=== PATIENT | female | born 1945 | race Caucasian/White ===

== ENCOUNTER 2020-06-18 20:37 | Inpatient (IN) | payer MEDICARE, OTHER, SELFPAY ==
[2020-06-18 20:52] VITALS: BP 179/87; PULSE 64; RESP 14; TEMP 36.6; O2SAT 91; BMI 25.6
[2020-06-18 20:57] LABS: Glucose Point of Care > 600 mg/dL (70-110)
--- NOTE | 2020-06-18 20:59 | XRR_ITS ---
PROCEDURE INFORMATION: Exam: XR Chest, 1 View Exam date and time: 06/18/2020 9:33 PM Age: 75 years old Clinical indication: Condition or disease; Other: Hyperglycemia TECHNIQUE: Imaging protocol: XR of the chest Views: Frontal portable upright view of the chest. COMPARISON: CR Chest 1 [place] [id number] 07/05/2016 6:05 PM FINDINGS: Lungs: Mild left basilar pulmonary subsegmental atelectasis. The lungs are otherwise peripherally clear bilaterally. The pulmonary vasculature is normal. Pleural space: No pleural effusion. No pneumothorax. Heart/Mediastinum: The heart is normal in size and contour. Mediastinum: Stable. Vasculature: Moderate aortic arch atherosclerotic calcification without ectasia. Diaphragm: The right hemidiaphragm remains moderately elevated. Bones/joints: Stable. Organs: The gallbladder is likely surgically absent, with metallic clips overlying the gallbladder fossa. XR/XR chest 1V portable [id number] IMPRESSION: 1. Mild left basilar pulmonary subsegmental atelectasis. 2. Prior cholecystectomy.
--- NOTE | 2020-06-18 20:59 | ECG_ITS ---
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 Measurements Intervals [place] Rate: 60 P: 71 VA: 158 QRS: 38 QRSD: 97 T: -32 QT: 430 QTc: 431 Interpretive Statements SINUS RHYTHM NONSPECIFIC T-WAVE ABNORMALITY No previous ECG available for comparison Electronically Signed On 06-19-2020 13:56:14 CDT by Ann Hills M.D. [id number]
--- NOTE | 2020-06-18 21:24 | W.ED.NAVMDI ---
HPI - Nausea/Vomiting/Diarrhea General: Chief complaint: Nausea/Vomiting/Diarrhea Stated complaint: high bs Time Seen by Provider: 06/18/20 20:58 History of Present Illness: HPI Narrative: This patient is a 75-year-old female who presents today with her . She came in with a high blood sugar. Apparently she had some nausea and vomiting this afternoon. They checked her blood sugar at home and it was reading high. She came in by ambulance. Her tells me that she has dementia and cannot answer any my questions. I asked him about what she takes for her diabetes and he said she takes an insulin pen. He does not know what dose. He does not know if she has been taking it. He does not help her with that at all. He also does not check her blood sugars and he does not know if she checks her is either. He noticed that she has been very thirsty for the past couple of weeks. MD elicited complaint: nausea and vomiting Onset (ago): unknown Associated abdominal pain: No Review of Systems General: Reports: ROS unobtainable due to mental status Endo: Reports: polydipsia PFSH ED PFSH: Medical History Anxiety B12 deficiency CKD (chronic kidney disease) Diabetes HTN (hypertension) Surgical History S/P appendectomy S/P carpal tunnel release S/P cataract surgery S/P hysterectomy Family History (Updated 11/12/19 @ 22:34 by Ngozi Underwood RN) Father Myocardial infarction Stroke Social History Smoking and tobacco status: never smoked Physical Exam Const: COMMON NORMALS: no acute distress, no limitations and alert GENERAL APPEARANCE: cooperative and comfortable HENMT: HEAD & SCALP: normal to inspection FACE & SINUS: normal facial exam Eye: GENERAL EYE: appearance normal, both eyes and all related structures Neck/C-Spine: COMMON NORMALS: supple, no meningeal signs and no JVD Chest: COMMONS NORMALS: normal inspection of the chest Resp: COMMON NORMALS: normal respiratory effort, No use of accessory muscles and clear to auscultation bilaterally AUSCULTATION: clear to auscultation bilaterally Cardio: COMMON NORMALS: no JVD, regular rate, regular rhythm and No murmurs present (Cardio) RATE: regular rate RHYTHM: regular rhythm GI: COMMON NORMALS: Normal to inspection, nondistended, normoactive bowel sounds present, Soft to palpation and non-tender INSPECTION: Yes normal to inspection AUSCULTATION: Yes normoactive bowel sounds PALPATION: Yes Soft to palpation Back/Pelvis: COMMON NORMALS: thoracic and lumbar spine normal to inspection Extremity: COMMON NORMALS: normal to inspection Neuro: COMMON NORMALS: moves all extremities, no focal motor deficits and no sensory deficits noted SENSORIUM/ORIENTATION: Yes alert MENINGEAL SIGNS: Yes no meningeal signs Psych: COMMON NORMALS: mental status grossly normal, cooperative and normal affect Skin: COMMON NORMALS: no rashes or lesions noted and turgor normal GENERAL SKIN EXAM: no rashes or lesions noted and turgor normal Course ED course: Blood sugar 700. There is no ketoacidosis. She does have a UTI. She was not vomiting in the ED. We will admit her for IV antibiotics for her UTI and insulin to control her blood sugar. Concerned about her status at home as her is not helping her with her insulin and this could be potentially dangerous situation. Vital Signs: Vital signs: Vital Signs Temperature 97.8 F 06/18/20 20:52 Pulse Rate 60 06/18/20 22:11 Respiratory Rate 18 06/18/20 22:11 Blood Pressure 179/87 06/18/20 20:52 Pulse Oximetry 93 06/18/20 22:11 MDM - Nausea/Vomiting/Diarrhea Lab Data: Labs: Lab Results 06/18/20 06/18/20 06/18/20 Range/Units 20:53 21:24 21:24 WBC 7.5 (4.0-10.0) 10^3/ uL RBC 4.96 (4.1-5.3) 10^6/u L Hgb 13.0 (11.5-15.3) g/dL Hct 41.2 (37.0-47.0) % MCV 83.1 (81-99) fL MCH 26.2 L (28.0-34.0) pg MCHC 31.6 (30.0-36.0) g/dL RDW 14.8 (12.1-15.1) % Plt Count 256 (130-400) 10^3/c mm MPV 14.0 H (7.4-10.4) fL Neut % (Auto) 79.8 % Lymph % (Auto) 12.4 % [place] % (Auto) 5.9 % Eos % (Auto) 0.8 % Baso % (Auto) 0.4 % Neut # (Auto) 5.99 (1.8-7.7) 10^3/u L Lymph # (Auto) 0.9 (0.8-4.8) 10^3/u L [place] # (Auto) 0.4 (0.2-0.9) 10^3/u L Eos # (Auto) 0.1 (0.0-0.8) 10^3/u L Baso # (Auto) 0.0 (0.0-0.1) 10^3/u L Nucleated RBC % (a uto) 0 % Nucleated RBCs # 0.0 /100WBC Sodium Cancelled Potassium Cancelled Chloride Cancelled Carbon Dioxide Cancelled Anion Gap Cancelled BUN Cancelled Creatinine Cancelled GFR Calculation Cancelled Glucose Cancelled POC Glucose > 600 (70-110) mg/dL Calculated Osmolal ity Cancelled Lactic Acid Calcium Cancelled Total Bilirubin Cancelled AST Cancelled ALT Cancelled Alkaline Phosphata se Cancelled Troponin T Baselin e C-Reactive Protein Cancelled Total Protein Cancelled Albumin Cancelled Globulin Cancelled Lipase Cancelled Urine Color (Yellow) Urine Appearance (CLEAR) Urine pH (5-7) Ur Specific Gravit y (1.005-1.030) Urine Protein (Negative) Urine Glucose (UA) (Normal) Urine Ketones (Negative) Urine Blood (Negative) Urine Nitrate (Negative) Urine Bilirubin (Negative) Urine Urobilinogen (Negative) mg/dL Ur Leukocyte Cande ase (Negative) Urine RBC (0-2) /hpf Urine WBC (0-5) /hpf Ur Squamous Epith Cells (0-5) /hpf Amorphous Sediment Urine Bacteria (NONE) /hpf Urine Mucus /hpf Urine Yeast /hpf Serum Ketones Cancelled 06/18/20 06/18/20 06/18/20 Range/Units 21:24 21:24 21:30 WBC (4.0-10.0) 10^3/ uL RBC (4.1-5.3) 10^6/u L Hgb (11.5-15.3) g/dL Hct (37.0-47.0) % MCV (81-99) fL MCH (28.0-34.0) pg MCHC (30.0-36.0) g/dL RDW (12.1-15.1) % Plt Count (130-400) 10^3/c mm MPV (7.4-10.4) fL Neut % (Auto) % Lymph % (Auto) % [place] % (Auto) % Eos % (Auto) % Baso % (Auto) % Neut # (Auto) (1.8-7.7) 10^3/u L Lymph # (Auto) (0.8-4.8) 10^3/u L [place] # (Auto) (0.2-0.9) 10^3/u L Eos # (Auto) (0.0-0.8) 10^3/u L Baso # (Auto) (0.0-0.1) 10^3/u L Nucleated RBC % (a uto) % Nucleated RBCs # /100WBC Sodium Potassium Chloride Carbon Dioxide Anion Gap BUN Creatinine GFR Calculation Glucose POC Glucose (70-110) mg/dL Calculated Osmolal ity Lactic Acid Cancelled Calcium Total Bilirubin AST ALT Alkaline Phosphata se Troponin T Baselin e Cancelled C-Reactive Protein Total Protein Albumin Globulin Lipase Urine Color Yellow (Yellow) Urine Appearance Cloudy (CLEAR) Urine pH 5 (5-7) Ur Specific Gravit y 1.015 (1.005-1.030) Urine Protein 1+ H (Negative) Urine Glucose (UA) 4+ H (Normal) Urine Ketones 1+ H (Negative) Urine Blood Trace H (Negative) Urine Nitrate Positive H (Negative) Urine Bilirubin Neg (Negative) Urine Urobilinogen Norm (Negative) mg/dL Ur Leukocyte Cande ase Negative (Negative) Urine RBC 0-4 H (0-2) /hpf Urine WBC 55-80 H (0-5) /hpf Ur Squamous Epith Cells 0-4 H (0-5) /hpf Amorphous Sediment Not Reportable Urine Bacteria 2+ H (NONE) /hpf Urine Mucus 1+ /hpf Urine Yeast Trace /hpf Serum Ketones 06/18/20 06/18/20 06/18/20 Range/Units 22:13 22:13 22:13 WBC (4.0-10.0) 10^3/ uL RBC (4.1-5.3) 10^6/u L Hgb (11.5-15.3) g/dL Hct (37.0-47.0) % MCV (81-99) fL MCH (28.0-34.0) pg MCHC (30.0-36.0) g/dL RDW (12.1-15.1) % Plt Count (130-400) 10^3/c mm MPV (7.4-10.4) fL Neut % (Auto) % Lymph % (Auto) % [place] % (Auto) % Eos % (Auto) % Baso % (Auto) % Neut # (Auto) (1.8-7.7) 10^3/u L Lymph # (Auto) (0.8-4.8) 10^3/u L [place] # (Auto) (0.2-0.9) 10^3/u L Eos # (Auto) (0.0-0.8) 10^3/u L Baso # (Auto) (0.0-0.1) 10^3/u L Nucleated RBC % (a uto) % Nucleated RBCs # /100WBC Sodium 125 L Potassium 4.4 Chloride 88 L Carbon Dioxide 19 L Anion Gap 22.4 H BUN 27 H Creatinine 1.7 H GFR Calculation Not Reportable Glucose 701 H* POC Glucose (70-110) mg/dL Calculated Osmolal ity 299 H Lactic Acid 1.1 Calcium 9.4 Total Bilirubin 0.4 AST 37 H ALT 28 Alkaline Phosphata se 128 H Troponin T Baselin e 42 H C-Reactive Protein Total Protein 7.4 Albumin 4.0 Globulin 3.4 Lipase 17 Urine Color (Yellow) Urine Appearance (CLEAR) Urine pH (5-7) Ur Specific Gravit y (1.005-1.030) Urine Protein (Negative) Urine Glucose (UA) (Normal) Urine Ketones (Negative) Urine Blood (Negative) Urine Nitrate (Negative) Urine Bilirubin (Negative) Urine Urobilinogen (Negative) mg/dL Ur Leukocyte Cande ase (Negative) Urine RBC (0-2) /hpf Urine WBC (0-5) /hpf Ur Squamous Epith Cells (0-5) /hpf Amorphous Sediment Urine Bacteria (NONE) /hpf Urine Mucus /hpf Urine Yeast /hpf Serum Ketones Negative Discharge Plan Discharge Prescriptions: No Action albuterol sulfate 90 mcg/actuation HFA aerosol inhaler 1 puff INHALATION Q4-5H RF: 0 allopurinol 100 mg tablet 100 mg PO DAILY RF: 0 amlodipine 5 mg tablet 5 mg PO .EVERY OTHER DAY RF: 0 aspirin 325 mg tablet 325 mg PO DAILY RF: 0 atorvastatin 20 mg tablet 20 mg PO DAILY RF: 0 calcium carbonate-vit D3-min 1 tab PO DAILY RF: 0 cyanocobalamin (vitamin B-12) 1,000 mcg/mL solution 1,000 mcg IM Q7D RF: 0 duloxetine 60 mg capsule,delayed release(DR/EC) 60 mg PO DAILY RF: 0 ibuprofen 600 mg tablet 600 mg PO Q8H PRN (Reason: Pain) RF: 0 clonazepam [Klonopin] 0.5 mg tablet 0.5 mg PO DAILY RF: 0 Levemir FlexTouch U-100 Insuln 100 unit/mL (3 mL) insulin pen 100 unit SUBCUT DAILY RF: 0 levothyroxine 75 mcg capsule 75 mcg PO DAILY RF: 0 lisinopril 40 mg tablet 40 mg PO DAILY RF: 0 magnesium oxide 1 tab PO DAILY RF: 0 metformin 1,000 mg tablet extended release 24hr 1,000 mg PO BID RF: 0 metoclopramide HCl 10 mg tablet 10 mg PO QID PRN (Reason: UNKNOWN) RF: 0 Trulicity 1.5 mg/0.5 mL pen injector 1.5 mg SUBCUT Q7D RF: 0 Coding Level of Care Code ED Denial Management Representative for Chg Fwd Exam Comprehensive
[2020-06-18 21:40] LABS: Basophils % 0.4 %; Eosinophils # 0.1 10^3/uL (0.0-0.8); Eosinophils % 0.8 %; Hematocrit 41.2 % (37.0-47.0); Lymphocytes # 0.9 10^3/uL (0.8-4.8); Lymphocytes % 12.4 %; Mean Corpuscular HGB Conc 31.6 g/dL (30.0-36.0); Mean Corpuscular Hemoglobin 26.2 pg (28.0-34.0); Mean Corpuscular Volume 83.1 fL (81-99); Monocytes # 0.4 10^3/uL (0.2-0.9); Monocytes % 5.9 %; Neutrophils # 5.99 10^3/uL (1.8-7.7); Neutrophils % 79.8 %; Nucleated Red Blood Cells % 0 %; Platelet Count 256 10^3/cmm (130-400); Red Blood Count 4.96 10^6/uL (4.1-5.3); Red Cell Distribution Width 14.8 % (12.1-15.1); White Blood Count 7.5 10^3/uL (4.0-10.0)
--- NOTE | 2020-06-18 22:05 | PC.NURSE ---
report given to jovana oiler helper assumed care.
[2020-06-18 22:08] LABS: Slide Review Slide Review Perform
[2020-06-18 22:11] VITALS: PULSE 60; RESP 18; O2SAT 93
[2020-06-18 22:31] LABS: Ketone (Acetest) Serum Negative (Negative)
[2020-06-18 22:37] LABS: Add Urine Microscopic? YES; Bacteria Urine 2+ /hpf; Bilirubin Urine Neg (Negative); Blood Urine Trace (Negative); Glucose Urine UA 4+ (Normal); Ketones Urine 1+ (Negative); Leukocyte Esterase Urine Negative (Negative); Mucus Urine 1+ /hpf; Nitrate Urine Positive (Negative); Protein Urine 1+ (Negative); RBC Urine 0-4 /hpf (0-2); Specific Gravity, Urine 1.015 (1.005-1.030); Squamous Epithelial Cell Urine 0-4 /hpf (0-5); Urine Appearance Cloudy (CLEAR); Urine Color Yellow (Yellow); Urobilinogen Urine Norm (Negative); WBC Urine 55-80 /hpf (0-5); pH Urine 5 (5-7)
[2020-06-18] MEDS: sodium chloride 0.9% 1,000 ML 999 ML IV (22:37)
[2020-06-18 22:38] LABS: Add Urine Culture? Yes
[2020-06-18 22:41] LABS: Alanine Aminotransferase 28 U/L (0-33); Alkaline Phosphatase 128 IU/L (35-105); Aspartate Amino Transferase 37 U/L (0-32); Blood Urea Nitrogen 27 mg/dL (8-23); Calcium 9.4 mg/dL (8.5-10.5); Carbon Dioxide 19 mmol/L (22-29); Chloride 88 mmol/L (98-107); Globulin 3.4 g/dL (1.3-4.6); Lipase 17 U/L (13-60); Osmolality Calculated 299 mOsm/kg (285-295); Sodium 125 mmol/L (136-145); Total Bilirubin 0.4 mg/dL (0.15-1.2); Total Protein 7.4 g/dL (6.6-8.7)
[2020-06-18 22:42] LABS: Lactic Sepsis W/Reflex 1.1 mmol/L (0.5-2.2)
[2020-06-18 22:55] LABS: Anion Gap 22.4 (5-19); Potassium 4.4 mmol/L (3.5-5.1); Troponin(5th) Baseline 42 ng/L (0-10)
[2020-06-18 22:56] LABS: Glucose 701 mg/dL (65-115)
--- NOTE | 2020-06-18 22:57 | PC.NURSE ---
lab called critical glucose 701, notified dr brumfield, no orders given at this time
--- NOTE | 2020-06-18 22:59 | ECG_ITS ---
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 Measurements Intervals [place] Rate: 61 P: 80 DE: 173 QRS: 55 QRSD: 95 T: 265 QT: 433 QTc: 438 Interpretive Statements SINUS RHYTHM MODERATE T-WAVE ABNORMALITY, CONSIDER INFERIOR ISCHEMIA [-0.1+ mV T WAVE IN II/aVF] Compared to ECG 06/18/2020 21:26:50 Possible ischemia now present T-wave abnormality still present Electronically Signed On 06-19-2020 13:59:49 CDT by Ann Hills M.D. [id number]
[2020-06-18] MEDS: cefTRIAXone 1,000 MG in sodium chloride 0.9% (plus) 50 ML 100 MG IV (23:04)
[2020-06-18] MEDS: insulin regular-human 100 units/1 mL 10 UNIT IVP (23:08)
--- NOTE | 2020-06-18 23:19 | P.HP_ITS ---
Providers/Chief Complaint Primary Care Provider: Patricia Hansen APN Chief Complaint: high bs History of Present Illness Misa Gordon is a 75 year old female who carries history of senile dementia, type 2 diabetes, insulin-dependent, lives with her at home came in today for an episode of emesis, hyperglycemia. Patient is not a good historian, is at the bedside who is stating that after her meal her blood sugar was checked which was high and then she experienced 2 episodes of emesis. She has cognitive impairment and her is not assisting her with insulin regimen at this point, she is not able to tell me how many units of insulin that she takes on daily basis, however she is aware of sliding scale. She is denying abdominal pain, chest pain, shortness of breath, dysuria, urinary frequency or urgency. Today she was feeling very weak and fell backwards and hit right side on the floor. She is experiencing mild to moderate pain in the right lower back area. Diagnosis in the ER revealed blood sugar 701 which after 10 units of insulin and normal saline bolus came down to 597, does not meet criteria for DKA, abnormal UA reviewed, she was given ceftriaxone, pseudohyponatremia, During my evaluation patient was able to tell me about her children's age, her name, events from today, she seems to have mild cognitive impairment, she was complaining of right lower back pain, there is moderate swelling on right lumbar area Review of Systems Const: Reports: body aches, change in appetite, fatigue and malaise; Denies: fever(s) or chills Eyes: Denies: change in vision ENMT: Denies: throat pain Card: Denies: chest pain Resp: Denies: dyspnea GI: Reports: nausea and vomiting; Denies: diarrhea : Denies: flank pain, difficulty voiding, dysuria, urinary frequency, urinary urgency or dribbling Musc: Reports: back pain and muscle cramps; Denies: neck pain Skin/Breast: Denies: rash Neuro: Denies: headache(s) Psych: Reports: memory loss and difficulty concentrating Endo: Denies: polyuria Ari/Lymph: Denies: easy bruising All/Imm: Denies: urticaria Medications/Allergies Home Medications Medication Instructions Recorded Confirmed Last Taken Type albuterol sulfate 90 mcg/actuation 1 puff INHALATION Q4-5H gm 11/12/19 06/18/20 06/17/20 History aerosol inhaler allopurinol 100 mg tablet 100 mg PO DAILY 11/12/19 06/18/20 06/18/20 History amlodipine 5 mg tablet 5 mg PO .EVERY OTHER DAY tab 11/12/19 06/18/20 06/17/20 History aspirin 325 mg tablet 325 mg PO DAILY 11/12/19 06/18/20 06/18/20 History atorvastatin 20 mg tablet 20 mg PO DAILY 11/12/19 06/18/20 06/18/20 History calcium carbonate-vit D3-min 1 tab PO DAILY 11/12/19 06/18/20 06/18/20 History clonazepam 0.5 mg tablet 0.5 mg PO DAILY 11/12/19 06/18/20 06/18/20 History cyanocobalamin (vitamin B-12) 1,000 mcg IM Q7D ml 11/12/19 06/18/20 06/12/20 History 1,000 mcg/mL injection solution duloxetine 60 mg capsule,delayed 60 mg PO DAILY 11/12/19 06/18/20 06/18/20 History release ibuprofen 600 mg tablet 600 mg PO Q8H PRN 11/12/19 06/18/20 06/18/20 History insulin detemir U-100 100 unit/mL 100 unit SUBCUT DAILY 11/12/19 06/18/20 06/18/20 History (3 mL) subcutaneous pen levothyroxine 75 mcg capsule 75 mcg PO DAILY 11/12/19 06/18/20 06/18/20 History lisinopril 40 mg tablet 40 mg PO DAILY 11/12/19 06/18/20 06/18/20 History magnesium oxide 1 tab PO DAILY 11/12/19 06/18/20 06/18/20 History metformin 1,000 mg tablet,extended 1,000 mg PO BID 11/12/19 06/18/20 06/18/20 History release 24hr metoclopramide HCl 10 mg tablet 10 mg PO QID PRN tab 11/12/19 06/18/20 06/18/20 History dulaglutide [Trulicity] 1.5 mg SUBCUT Q7D 06/18/20 06/18/20 Unknown History Allergies Allergy/AdvReac Type Severity Reaction Status Date / Time iodine Allergy Unknown Verified 06/18/20 21:46 morphine Allergy Unknown Verified 06/18/20 21:46 PFSH Acute PFSH: Medical History (Updated 06/19/20 @ 00:36 by Carmen Moralez MD) Anxiety B12 deficiency CKD (chronic kidney disease) Diabetes HTN (hypertension) Senile dementia Surgical History S/P appendectomy S/P carpal tunnel release S/P cataract surgery S/P hysterectomy Family History Father Myocardial infarction Stroke Social History (Updated 06/19/20 @ 00:37 by Carmen Moralez MD) Smoking and tobacco status: never smoked Alcohol intake: never Substance/Drug Use: never Household members: spouse Housing: House Marital status: Vitals/I&O/Wt Last Vital Signs Temp 97.8 F 06/18/20 20:52 Pulse 60 06/18/20 22:11 Resp 18 06/18/20 22:11 BP 179/87 06/18/20 20:52 Pulse Ox 93 06/18/20 22:11 Weight last 48 hrs Weight 63.503 kg Physical Exam Narrative: EXAM NARRATIVE: Very pleasant elderly female Clinically looks dehydrated S1, S2 no tachycardia heart failure Abdomen soft nontender bowel sound present Lower extremity no edema gangrene or ulcer Lungs are clear to auscultation Neurologically no focal deficit Mild cognitive impairment EOMI, PERRLA Lower extremity without edema gangrene or ulcer Data : 06/18/20 21:24 06/18/20 22:13 Micro: Microbiology 06/18/20 21:24 Blood Culture - Preliminary Blood SPECIMEN COLLECTED A&P Assessment and plan (1) Hyperglycemia without ketosis: Status: Acute (2) Acute hypoactive delirium due to another medical condition: Status: Acute (3) UTI (urinary tract infection): Status: Acute (4) Hyponatremia: Status: Acute (5) Poorly controlled type 2 diabetes mellitus: Status: Acute Additional A&P Information Hyperglycemia without DKA Poorly controlled type 2 diabetes Active UTI I believe patient's cognitive impairment and lack of appropriate use of insulin is the cause of hypoglycemia, is also not paying attention to her hyperglycemia at home as well Patient does not know her insulin dosages however on previous records she was taking Lantus 40 units After getting 10 units of insulin and bolus her sugar came down to 600 from 700 I will keep her on normal saline, high dose sliding scale, start Lantus 20 units, check A1c level UTI No signs of sepsis, continue ceftriaxone follow-up with urine culture Acute hypoactive delirium due to UTI and hyperglycemia Also sustained a fall today She has moderate swelling of the right lumbar region which I think is hematoma, for worsening of her symptoms can get lumbar CT scan Pseudohyponatremia: Secondary to hyperglycemia, I will keep her on normal saline maintenance rate for hyperglycemia Acute kidney injury likely due to nephrotoxic agents Hold lisinopril ibuprofen Hypothyroidism: Continue levothyroxine DNR/DNI discussed with the patient and her Consistent carb diet DVT prophylaxis Heparin To prevent future complications I would recommend home health services and educating her for diabetes Attestations Medical Necessity Statement*: Anticipating discharge in less than 48 hours continued management for UTI and hyperglycemia without DKA Time Spent in Patient Care: (>than 50% of time spent in counselling and/or direct pt care on unit) . 45mins Coding Level of Care Code Acute Maintenance Technician 3Rd Shift for Chg Fwd Diagnoses Hyperglycemia without ketosis R73.9 Acute hypoactive delirium due to another medical condition F05 UTI (urinary tract infection) N39.0 Hyponatremia E87.1 Poorly controlled type 2 diabetes mellitus E11.65
[2020-06-18 23:25] LABS: C Reactive Protein 10.3 mg/L (0.0-4.9)
--- NOTE | 2020-06-18 23:40 | PC.NURSE ---
accucheck 531
[2020-06-18 23:41] LABS: Glucose Point of Care 597 mg/dL (70-110)
[2020-06-19] VITALS (10 sets, daily range): BP systolic 112–171; BP diastolic 53–92; PULSE 56–84; RESP 16–18; TEMP 36.4–37.1; O2SAT 94–98
[2020-06-19 01:27] LABS: Troponin 5 2HR 41.25 ng/L (0-10); Troponin 5 2HR Delta -0.75 ABS# (0-10)
[2020-06-19] MEDS: insulin glargine 100 units/1 mL 20 UNIT SUBCUT ×2 (01:58→09:53)
[2020-06-19] MEDS: sodium chloride 0.9% 500 ML IV (01:58)
[2020-06-19] MEDS: heparin 5,000 unit/mL INJ 1 mL 5000 UNIT SUBCUT ×3 (01:58→17:26)
[2020-06-19 02:04] LABS: Glucose Point of Care > 600 mg/dL (70-110)
[2020-06-19 02:27] LABS: Estmated Average Glucose 467; Hemoglobin A1C 17.9 % (4.0-6.0)
[2020-06-19 03:07] LABS: Glucose Point of Care 519 mg/dL (70-110)
[2020-06-19] MEDS: sodium chloride 0.9% 1,000 ML 100 ML IV ×2 (03:24→11:31)
[2020-06-19] MEDS: sodium chloride 0.9% 500 ML 999 ML IV (03:25)
[2020-06-19 05:23] LABS: Basophils % 0.5 %; Eosinophils % 0.2 %; Hematocrit 34.7 % (37.0-47.0); Hemoglobin 11.1 g/dL (11.5-15.3); Lymphocytes # 1.1 10^3/uL (0.8-4.8); Lymphocytes % 16.2 %; Mean Corpuscular Hemoglobin 26.1 pg (28.0-34.0); Mean Corpuscular Volume 81.5 fL (81-99); Mean Platelet Volume 13.6 fL (7.4-10.4); Monocytes # 0.3 10^3/uL (0.2-0.9); Monocytes % 4.5 %; Neutrophils # 5.06 10^3/uL (1.8-7.7); Neutrophils % 78.1 %; Nucleated Red Blood Cells % 0 %; Platelet Count 218 10^3/cmm (130-400); Red Blood Count 4.26 10^6/uL (4.1-5.3); Red Cell Distribution Width 14.4 % (12.1-15.1); White Blood Count 6.5 10^3/uL (4.0-10.0)
[2020-06-19 05:51] LABS: Anion Gap 18.1 (5-19); Blood Urea Nitrogen 26 mg/dL (8-23); Calcium 7.9 mg/dL (8.5-10.5); Carbon Dioxide 21 mmol/L (22-29); Chloride 96 mmol/L (98-107); Glucose 407 mg/dL (65-115); Osmolality Calculated 296 mOsm/kg (285-295); Potassium 3.1 mmol/L (3.5-5.1); Sodium 132 mmol/L (136-145)
[2020-06-19 06:05] LABS: Slide Review Slide Review Perform
[2020-06-19 06:13] LABS: Glucose Point of Care 431 mg/dL (70-110)
[2020-06-19 06:13] LABS: Glucose Point of Care 329 mg/dL (70-110)
[2020-06-19] MEDS: amlodipine 5 mg Tablet PO (08:00)
[2020-06-19] MEDS: duloxetine 60 mg Capsule PO (08:00)
[2020-06-19] MEDS: aspirin 325 mg Tablet PO (08:00)
[2020-06-19] MEDS: atorvastatin 40 mg Tablet 20 MG PO (08:00)
[2020-06-19] MEDS: levothyroxine 150 mcg Tablet 75 MCG PO (08:00)
[2020-06-19] MEDS: allopurinol 100 mg Tablet PO (08:00)
[2020-06-19 10:11] LABS: Thyroid Stimulating Hormone 52.65 uIU/mL (0.27-4.20)
[2020-06-19 10:57] LABS: Glucose Point of Care 142 mg/dL (70-110)
--- NOTE | 2020-06-19 11:55 | PC.CHAP ---
Pastoral Care Encounter/Spiritual Assessment Type of Contact [] Declined literature teacher visit [] Patient/Family/Request visit [] Outpatient visit [] Follow-up visit [] Physician referral [] Code/Alert [X] Routine visit [] Staff referral [] Actively dying [] Patient sleeping [] Family support [] [] Out of room [] Palliative care [] [] Receiving care in room [] Pre-surgical visit [] Trauma [] Long length of stay [] ICU visit [] Other: Relational/Emotional Strength [] Patient feels connected with others/family/visitors/staff [] Distress [] Loneliness/isolation [] Abandonment Spirituality of Patient [] Person of Sophia [] Attends Latter-Day of their Sophia [] Believes in Prayer [] Reads Bible or Episcopal materials [] There are Spiritual issues to be addressed Clip Baker Interventions [] Prayer [] Active listening [] Non-anxious presence [] Spiritual/emotional support [] Crisis/trauma care [] Spiritual counseling [] Bereavement support [] Provided bereavement packet [] Provided Bible/devotional materials [] Provided toy/stuffed animal, coloring book to patient or family member [] Provided Communion [] Anointing/[place] [] Salvation [] Completed spiritual assessment [] Other: Impact on Illness or Injury [] Angry [] Fearful [] Anxious [] Often cries [] Exhaustion [] Unable to work [] Unable to attend jehovah's witness [] Unable to walk/stand [] Unable to read [] Unable to drive [] Unable to eat/drink [] Unable to sleep [] Unable to be with family [] Patient intubated [] Other: Summary Time spent with patient
--- NOTE | 2020-06-19 12:07 | PM.PN ---
Subjective Subjective: Interval history: Patient awake in bed at time of exam this morning. She reported no concerns, no chest pain or shortness of breath. Only concern was that she wanted to discuss with her , Jordan, about reason for admission. Discussed with her elevated blood sugars on admission. She could not tell me the amount of insulin that she takes at home. Vitals/I&O/Wt Last Vital Signs Temp 97.5 F L 06/19/20 11:18 Pulse 63 06/19/20 11:18 Resp 16 06/19/20 11:18 BP 116/59 06/19/20 11:18 Pulse Ox 96 06/19/20 11:18 06/18/20 06/19/20 06/19/20 22:59 06:59 14:59 Intake Total 1.167 / 2090.167 1000 / 1000 Balance 2090.167 / 1.167 1000 / 1000 Weight last 48 hrs Weight 63.503 kg Physical Exam Const: COMMON NORMALS: alert GENERAL APPEARANCE: cooperative ORIENTATION/CONSCIOUSNESS: Yes awake and Yes oriented to person HENMT: COMMON NORMALS: normocephalic and atraumatic HEAD & SCALP: normocephalic and atraumatic Eye: COMMON NORMALS: Equal, round and reactive pupils present PUPIL: Yes Equal, round and reactive pupils present Neck/C-Spine: COMMON NORMALS: supple GENERAL: Yes normal visual inspection Resp: COMMON NORMALS: normal respiratory effort and clear to auscultation bilaterally EFFORT & INSPECTION: Yes able to speak in complete sentences AUSCULTATION: clear to auscultation bilaterally, no rhonchi and no wheezes Cardio: COMMON NORMALS: regular rate, regular rhythm and No murmurs present (Cardio) RATE: regular rate RHYTHM: regular rhythm GI: COMMON NORMALS: Soft to palpation and non-tender INSPECTION: No abdominal distension AUSCULTATION: Yes normoactive bowel sounds PALPATION: Yes Soft to palpation Extremity: COMMON NORMALS: no clubbing, cyanosis or edema and no calf tenderness Neuro: COMMON NORMALS: CN's II-XII intact bilaterally, moves all extremities and no focal motor deficits SENSORIUM/ORIENTATION: Yes alert and Yes oriented to person SPEECH: speech normal Psych: COMMON NORMALS: cooperative OTHER: Confused with underlying dementia that appears to be her baseline Skin: COMMON NORMALS: no rashes or lesions noted GENERAL SKIN EXAM: no rashes or lesions noted Data : 06/19/20 04:50 06/19/20 04:50 Micro: Microbiology 06/18/20 21:24 Blood Culture - Preliminary Blood SPECIMEN COLLECTED A&P Assessment and plan (1) Hyperglycemia without ketosis: Very poorly controlled diabetes mellitus, hemoglobin A1c greater than 17 We will continue with Lantus, given 20 units last night, continues to have a blood sugar over 300, will give an additional 20 units today. Continue on high-dose sliding scale insulin as needed Status: Acute (2) Acute hypoactive delirium due to another medical condition: Patient does have chronic dementia, will discuss with patient's today, believe she is at her baseline mentation at this time Patient continues to try to get out of bed and pull at IV, will place with a sitter for home precautions Status: Acute (3) UTI (urinary tract infection): Continue on IV Rocephin, urine culture ordered and pending, will de-escalate antibiotic therapy as indicated Status: Acute (4) Hyponatremia: Pseudohyponatremia secondary to hyperglycemia Status: Acute (5) Poorly controlled type 2 diabetes mellitus: Plan as above Hemoglobin A1c greater than 17. Estimated average glucose of 467. Patient is not likely compliant with her insulin therapy at home and would likely benefit from home health Status: Acute Additional A&P Information Acute kidney injury: Hold nephrotoxic agents, continue with IV fluids as this appears to be prerenal, also continue to treat infectious source. Will recheck labs tomorrow Hypothyroidism: Continue levothyroxine as listed as a home medication. Will discuss with patient's if she has been taking this as her TSH is significantly elevated at 52. DNR/DNI discussed with the patient and her Consistent carb diet DVT prophylaxis Heparin Attestations Medical Necessity Statement*: Continued hospitalization due to severe hyperglycemia in the setting of UTI and poorly controlled diabetes Coding Level of Care Code Acute Wind Turbine Performance Engineer for Chg Fwd Diagnoses Hyperglycemia without ketosis R73.9 Acute hypoactive delirium due to another medical condition F05 UTI (urinary tract infection) N39.0 Hyponatremia E87.1 Poorly controlled type 2 diabetes mellitus E11.65
[2020-06-19 12:38] LABS: T3 Free 0.4 PG/ML (2.0-4.4)
[2020-06-19 16:44] LABS: Glucose Point of Care 84 mg/dL (70-110)
--- NOTE | 2020-06-19 18:21 | PC.NURSE ---
END OF SHIFT SUMMARY pt disorganized this morning. order for 1:1 sitter was given, pt has not been as disorganized. pt has been able to rest well. new IV placed today by this nurse in R AC and is patent. pt resting in bed.
[2020-06-19 21:01] LABS: Glucose Point of Care > 600 mg/dL (70-110)
[2020-06-19 21:02] LABS: Glucose Point of Care 238 mg/dL (70-110)
[2020-06-19] MEDS: cefTRIAXone 1,000 MG in sodium chloride 0.9% (plus) 50 ML 100 MG IV (21:53)
[2020-06-20] MEDS: heparin 5,000 unit/mL INJ 1 mL 5000 UNIT SUBCUT ×3 (01:07→16:47)
[2020-06-20] MEDS: sodium chloride 0.9% 1,000 ML 100 ML IV ×2 (01:37→08:01)
[2020-06-20 03:00] VITALS: BP 164/61; PULSE 64; RESP 18; TEMP 37.2; O2SAT 97
[2020-06-20 06:02] LABS: Basophils # 0.1 10^3/uL (0.0-0.1); Basophils % 0.7 %; Eosinophils # 0.2 10^3/uL (0.0-0.8); Eosinophils % 2.2 %; Hematocrit 35.4 % (37.0-47.0); Hemoglobin 11.3 g/dL (11.5-15.3); Lymphocytes # 1.6 10^3/uL (0.8-4.8); Lymphocytes % 21.3 %; Mean Corpuscular HGB Conc 31.9 g/dL (30.0-36.0); Mean Corpuscular Hemoglobin 26.7 pg (28.0-34.0); Mean Corpuscular Volume 83.5 fL (81-99); Mean Platelet Volume 13.8 fL (7.4-10.4); Monocytes # 0.6 10^3/uL (0.2-0.9); Monocytes % 8.1 %; Nucleated Red Blood Cells % 0 %; Platelet Count 251 10^3/cmm (130-400); Red Blood Count 4.24 10^6/uL (4.1-5.3); Red Cell Distribution Width 14.9 % (12.1-15.1); White Blood Count 7.6 10^3/uL (4.0-10.0)
[2020-06-20 06:29] LABS: Anion Gap 15.6 (5-19); Blood Urea Nitrogen 20 mg/dL (8-23); Calcium 8.6 mg/dL (8.5-10.5); Carbon Dioxide 22 mmol/L (22-29); Chloride 100 mmol/L (98-107); Glucose 147 mg/dL (65-115); Osmolality Calculated 283 mOsm/kg (285-295); Potassium 3.6 mmol/L (3.5-5.1); Sodium 134 mmol/L (136-145)
[2020-06-20 07:00] VITALS: BP 134/86; PULSE 59; RESP 16; TEMP 36.4; O2SAT 91
[2020-06-20 07:39] LABS: Glucose Point of Care 145 mg/dL (70-110)
[2020-06-20] MEDS: levothyroxine 150 mcg Tablet 75 MCG PO (08:03)
[2020-06-20] MEDS: aspirin 325 mg Tablet PO (08:03)
[2020-06-20] MEDS: atorvastatin 40 mg Tablet 20 MG PO (08:03)
[2020-06-20] MEDS: allopurinol 100 mg Tablet PO (08:03)
[2020-06-20] MEDS: duloxetine 60 mg Capsule PO (08:03)
[2020-06-20] MEDS: insulin glargine 100 units/1 mL 30 UNIT SUBCUT (08:52)
[2020-06-20 09:49] LABS: Glucose Point of Care 283 mg/dL (70-110)
--- NOTE | 2020-06-20 10:16 | PC.OT ---
OT Note: Patient only briefly roused and did not interact with therapist. Will attempt again as able.
--- NOTE | 2020-06-20 10:49 | PM.PN ---
Subjective Subjective: Interval history: Sleeping in bed at time of exam this morning. Upon waking she remained somewhat drowsy. She did sit up at the side of the bed and would answer yes or no questions appropriately. Continue to have some confusion with underlying dementia. RN at bedside noted that patient had a fall overnight falling back into bed and she did hit her head on the bed rail. Vitals/I&O/Wt Last Vital Signs Temp 97.6 F 06/20/20 07:00 Pulse 59 L 06/20/20 07:00 Resp 16 06/20/20 07:00 BP 134/86 06/20/20 07:00 Pulse Ox 91 06/20/20 07:00 06/19/20 06/20/20 06/20/20 22:59 06:59 14:59 Intake Total 1120 / 2120 760 / 760 Balance 1120 / 2120 760 / 760 Weight last 48 hrs Weight 63.503 kg Physical Exam Const: COMMON NORMALS: alert GENERAL APPEARANCE: cooperative ORIENTATION/CONSCIOUSNESS: Yes awake and Yes oriented to person HENMT: COMMON NORMALS: normocephalic and atraumatic HEAD & SCALP: normocephalic and atraumatic Eye: COMMON NORMALS: Equal, round and reactive pupils present PUPIL: Yes Equal, round and reactive pupils present Neck/C-Spine: COMMON NORMALS: supple GENERAL: Yes normal visual inspection Resp: COMMON NORMALS: normal respiratory effort and clear to auscultation bilaterally EFFORT & INSPECTION: Yes able to speak in complete sentences AUSCULTATION: clear to auscultation bilaterally, no rhonchi and no wheezes Cardio: COMMON NORMALS: regular rate, regular rhythm and No murmurs present (Cardio) RATE: regular rate RHYTHM: regular rhythm GI: COMMON NORMALS: Soft to palpation and non-tender INSPECTION: No abdominal distension AUSCULTATION: Yes normoactive bowel sounds PALPATION: Yes Soft to palpation Extremity: COMMON NORMALS: no clubbing, cyanosis or edema and no calf tenderness Neuro: COMMON NORMALS: CN's II-XII intact bilaterally, moves all extremities and no focal motor deficits SENSORIUM/ORIENTATION: Yes alert and Yes oriented to person SPEECH: speech normal OTHER: sleepy this morning Psych: COMMON NORMALS: cooperative OTHER: Confused with underlying dementia that appears to be her baseline Skin: COMMON NORMALS: no rashes or lesions noted GENERAL SKIN EXAM: no rashes or lesions noted Data : 06/20/20 04:30 06/20/20 04:30 Micro: Microbiology 06/18/20 21:30 Urine Culture - Preliminary Urine,Clean Catch Gram Negative Rods 06/18/20 21:24 Blood Culture - Preliminary Blood NEGATIVE TO DATE A&P Assessment and plan (1) Hyperglycemia without ketosis: Very poorly controlled diabetes mellitus, hemoglobin A1c greater than 17 Lantus 30 units daily High dose sliding scale insulin as needed Discussed with patient's , Jordan, yesterday about the importance of her taking her blood sugars at home and being compliant with her insulin as well as following diabetic diet, he verbalized understanding and agreed with plan Status: Acute (2) Acute hypoactive delirium due to another medical condition: Continue close monitoring with neurologic checks Status: Acute (3) UTI (urinary tract infection): Continue on IV Rocephin Urine culture pending Status: Acute (4) Hyponatremia: Pseudohyponatremia secondary to hyperglycemia, improved Status: Acute (5) Poorly controlled type 2 diabetes mellitus: Plan as above Hemoglobin A1c greater than 17. Estimated average glucose of 467. Patient's reported noncompliance with any medication Status: Acute Additional A&P Information Acute kidney injury: Improving Hypothyroidism: Patient had been noncompliant with levothyroxine at home, TSH elevated at 52, however due to noncompliance will not increase dose at this time will continue on previously prescribed dose and she will need outpatient recheck in 3 to 4 weeks. DNR/DNI discussed with the patient and her Consistent carb diet DVT prophylaxis Heparin Attestations Medical Necessity Statement*: Further hospitalization due to acute encephalopathy with underlying dementia, acute kidney injury, hyperglycemia Coding Level of Care Code Acute Electric Fan Assembler for Chg Fwd Diagnoses Hyperglycemia without ketosis R73.9 Acute hypoactive delirium due to another medical condition F05 UTI (urinary tract infection) N39.0 Hyponatremia E87.1 Poorly controlled type 2 diabetes mellitus E11.65
--- NOTE | 2020-06-20 10:57 | PC.CHAP ---
Pastoral Care Encounter/Spiritual Assessment Type of Contact [] Declined corn detasseler machine operator visit [] Patient/Family/Request visit [] Outpatient visit [] Follow-up visit [] Physician referral [] Code/Alert [] Routine visit [] Staff referral [] Actively dying [] Patient sleeping [] Family support [] [] Out of room [] Palliative care [] [] Receiving care in room [] Pre-surgical visit [] Trauma [] Long length of stay [] ICU visit [x] Other: Patient intubated Relational/Emotional Strength [] Patient feels connected with others/family/visitors/staff [] Distress [] Loneliness/isolation [] Abandonment Spirituality of Patient [] Person of Sophia [] Attends Restorationist of their Sophia [] Believes in Prayer [] Reads Bible or Adventist materials [] There are Spiritual issues to be addressed Acls Specialist Interventions [] Prayer [] Active listening [] Non-anxious presence [] Spiritual/emotional support [] Crisis/trauma care [] Spiritual counseling [] Bereavement support [] Provided bereavement packet [] Provided Bible/devotional materials [] Provided toy/stuffed animal, coloring book to patient or family member [] Provided Communion [] Anointing/[place] [] Salvation [] Completed spiritual assessment [] Other: Impact on Illness or Injury [] Angry [] Fearful [] Anxious [] Often cries [] Exhaustion [] Unable to work [] Unable to attend bahai [] Unable to walk/stand [] Unable to read [] Unable to drive [] Unable to eat/drink [] Unable to sleep [] Unable to be with family [x] Patient intubated [] Other: Summary Time spent with patient 5 mins
[2020-06-20 11:00] VITALS: BP 123/74; PULSE 64; RESP 16; TEMP 36.4; O2SAT 16
[2020-06-20 11:56] LABS: Glucose Point of Care 131 mg/dL (70-110)
--- NOTE | 2020-06-20 13:27 | PC.OT ---
OT EVALUATION ORDERS RECEIVED. RED FOAM FOR UTENSILS LEFT EARLIER IN THE DAY BEFORE ORDERS RECEIVED PER REPORT OF [place] THE PATIENT WAS HAVING TROUBLE HOLDING HER UTENSILS AT BREAKFAST. CHECKED AFTER LUNCH WITH 1:1 SITTER THAT REPORTS THAT THE PATIENT ONLY ATE 2 BITES OF POTATOES AT LUNCH AND APPEARED TO DO OK WITH FOAM ON UTENSILS BUT HAS NOT STAYED ALERT ENOUGH TO KNOW IF REALLY A HELP. WILL ATTEMPT OT EVALUATION AGAIN TOMORROW.
[2020-06-20 16:00] VITALS: BP 175/89; PULSE 64; RESP 18; TEMP 36.4; O2SAT 95
[2020-06-20 17:41] LABS: Glucose Point of Care 158 mg/dL (70-110)
[2020-06-20 18:38] LABS: Glucose Point of Care 132 mg/dL (70-110)
--- NOTE | 2020-06-20 18:51 | PC.NURSE ---
END OF SHIFT SUMMARY pt drowsy this morning and afternoon. pt able to wake up during dinner time to eat as well as talk with her visitor. IV patent.
[2020-06-20 19:51] VITALS: BP 164/69; PULSE 64; RESP 17; TEMP 36.5; O2SAT 94
[2020-06-20 22:22] LABS: Glucose Point of Care 173 mg/dL (70-110)
[2020-06-20] MEDS: cefTRIAXone 1,000 MG in sodium chloride 0.9% (plus) 50 ML 100 MG IV (23:20)
[2020-06-21] VITALS (7 sets, daily range): BP systolic 116–170; BP diastolic 70–88; PULSE 59–79; RESP 16–18; TEMP 36.3–37; O2SAT 94–99
[2020-06-21] MEDS: heparin 5,000 unit/mL INJ 1 mL 5000 UNIT SUBCUT ×2 (01:59→07:50)
[2020-06-21 06:22] LABS: Glucose Point of Care 114 mg/dL (70-110)
[2020-06-21 06:37] LABS: Anion Gap 12.2 (5-19); Blood Urea Nitrogen 17 mg/dL (8-23); Calcium 8.1 mg/dL (8.5-10.5); Carbon Dioxide 23 mmol/L (22-29); Chloride 104 mmol/L (98-107); Glucose 70 mg/dL (65-115); Osmolality Calculated 282 mOsm/kg (285-295); Potassium 3.2 mmol/L (3.5-5.1); Sodium 136 mmol/L (136-145)
[2020-06-21] MEDS: insulin glargine 100 units/1 mL 30 UNIT SUBCUT (07:47)
[2020-06-21] MEDS: aspirin 325 mg Tablet PO (07:48)
[2020-06-21] MEDS: allopurinol 100 mg Tablet PO (07:48)
[2020-06-21] MEDS: atorvastatin 40 mg Tablet 20 MG PO (07:48)
[2020-06-21] MEDS: amlodipine 5 mg Tablet PO (07:48)
[2020-06-21] MEDS: duloxetine 60 mg Capsule PO (07:49)
[2020-06-21] MEDS: levothyroxine 150 mcg Tablet 75 MCG PO (07:49)
[2020-06-21 10:58] LABS: Glucose Point of Care 131 mg/dL (70-110)
--- NOTE | 2020-06-21 11:42 | PM.DCS ---
Discharge Providers Date of Admission: 06/19/20 13:26 Date of Discharge: June 21, 2020 Attending Provider at Admission: Carmen Moralez MD Attending Provider at Discharge: Domi Jordan DO Primary Care Provider: Patricia Hansen APN Diagnoses at Discharge Discharge Diagnosis (1) Hyperglycemia without ketosis: Status: Acute (2) Acute hypoactive delirium due to another medical condition: Status: Acute (3) UTI (urinary tract infection): Status: Acute (4) Hyponatremia: Status: Acute (5) Poorly controlled type 2 diabetes mellitus: Status: Acute Reason for Visit Reason for Visit: high bs Physical Exam Const: COMMON NORMALS: alert GENERAL APPEARANCE: cooperative ORIENTATION/CONSCIOUSNESS: Yes awake and Yes oriented to person HENMT: COMMON NORMALS: normocephalic and atraumatic HEAD & SCALP: normocephalic and atraumatic Eye: COMMON NORMALS: Equal, round and reactive pupils present PUPIL: Yes Equal, round and reactive pupils present Neck/C-Spine: COMMON NORMALS: supple GENERAL: Yes normal visual inspection Resp: COMMON NORMALS: normal respiratory effort and clear to auscultation bilaterally EFFORT & INSPECTION: Yes able to speak in complete sentences AUSCULTATION: clear to auscultation bilaterally, no rhonchi and no wheezes Cardio: COMMON NORMALS: regular rate, regular rhythm and No murmurs present (Cardio) RATE: regular rate RHYTHM: regular rhythm GI: COMMON NORMALS: Soft to palpation and non-tender INSPECTION: No abdominal distension AUSCULTATION: Yes normoactive bowel sounds PALPATION: Yes Soft to palpation Extremity: COMMON NORMALS: no clubbing, cyanosis or edema and no calf tenderness Neuro: COMMON NORMALS: CN's II-XII intact bilaterally, moves all extremities and no focal motor deficits SENSORIUM/ORIENTATION: Yes alert and Yes oriented to person SPEECH: speech normal OTHER: sleepy this morning Psych: COMMON NORMALS: cooperative OTHER: Confused with underlying dementia that appears to be her baseline Skin: COMMON NORMALS: no rashes or lesions noted GENERAL SKIN EXAM: no rashes or lesions noted Discharge Data Data Completed and Pending: Completed Studies During Hospitalization Category Date Time Status XR chest 1V rhett ble [id number] Stat Exams 06/18/20 20:59 Completed Pending at discharge Category Date Time Status Blood Culture Sta t Lab 06/18/20 21:24 Results Urine Culture Sta t Lab 06/18/20 21:30 Results Labs from last 24 hours 06/21/20 06/21/20 06/21/20 10:43 06:08 05:17 Sodium 136 Potassium 3.2 L Chloride 104 Carbon Dioxide 23 Anion Gap 12.2 BUN 17 Creatinine 1.3 H GFR Calculation Not Reportable Glucose 70 POC Glucose 131 114 Calculated Osmolal ity 282 L Calcium 8.1 L 06/20/20 06/20/20 06/20/20 22:20 17:38 16:40 Sodium Potassium Chloride Carbon Dioxide Anion Gap BUN Creatinine GFR Calculation Glucose POC Glucose 173 158 132 Calculated Osmolal ity Calcium 06/20/20 11:04 Sodium Potassium Chloride Carbon Dioxide Anion Gap BUN Creatinine GFR Calculation Glucose POC Glucose 131 Calculated Osmolal ity Calcium Vitals: Last Vital Signs Temp 97.3 F L 06/21/20 11:10 Pulse 64 06/21/20 11:10 Resp 18 06/21/20 11:10 BP 157/70 06/21/20 11:10 Pulse Ox 98 06/21/20 11:10 Discharge Plan Discharge Patient Disposition: Home Health Service Condition: Stable Prescriptions: New ciprofloxacin HCl 500 mg tablet 500 mg PO BID 3 Days Qty: 6 RF: 0 Continued albuterol sulfate 90 mcg/actuation HFA aerosol inhaler 1 puff INHALATION Q4-5H RF: 0 allopurinol 100 mg tablet 100 mg PO DAILY RF: 0 amlodipine 5 mg tablet 5 mg PO .EVERY OTHER DAY RF: 0 aspirin 325 mg tablet 325 mg PO DAILY RF: 0 atorvastatin 20 mg tablet 20 mg PO DAILY RF: 0 calcium carbonate-vit D3-min 1 tab PO DAILY RF: 0 cyanocobalamin (vitamin B-12) 1,000 mcg/mL solution 1,000 mcg IM Q7D RF: 0 duloxetine 60 mg capsule,delayed release(DR/EC) 60 mg PO DAILY RF: 0 levothyroxine 75 mcg capsule 75 mcg PO DAILY RF: 0 lisinopril 40 mg tablet 40 mg PO DAILY RF: 0 magnesium oxide 1 tab PO DAILY RF: 0 metformin 1,000 mg tablet extended release 24hr 1,000 mg PO BID RF: 0 metoclopramide HCl 10 mg tablet 10 mg PO QID PRN (Reason: UNKNOWN) RF: 0 Trulicity 1.5 mg/0.5 mL pen injector 1.5 mg SUBCUT Q7D RF: 0 Changed Levemir FlexTouch U-100 Insuln 100 unit/mL (3 mL) insulin pen 30 unit SUBCUT DAILY Qty: 0 RF: 0 Held clonazepam [Klonopin] 0.5 mg tablet 0.5 mg PO DAILY RF: 0 Hold Instructions: Resume on 07/05/20. Discontinued ibuprofen 600 mg tablet 600 mg PO Q8H PRN (Reason: Pain) RF: 0 Discharge Orders: Discharge Order (Routine); Ordered 06/21/20 Ordered By: Domi Jordan Referrals: [facility] ([facility]) [Outside] Patricia Hansen APN [Primary Care Provider] - 1-3 days Discharge Diet: Diabetic Discharge Activity: Increase activity as tolerated and As per PT/OT instructions Activity Restrictions/Additional Instructions: Continue to monitor blood sugar daily and present a blood sugar log to your primary care provider for further adjustment of insulin as needed. Continue to monitor carbohydrate intake. Continue on Levemir 30 units and continue with other medications as prescribed above. Your hemoglobin A1c was greater than 17, goal is to have your hemoglobin A1c at 7. Prescribed antibiotic, ciprofloxacin twice daily for 3 additional days due to concern for urinary tract infection Continue with home health services Your TSH was elevated, however since you have not been taking your levothyroxine as prescribed would recommend continuing current dose with recheck of your thyroid function in 3 to 4 weeks. Will need close follow-up with your primary care provider in 2 to 3 days Call your physician or present to the ED for any acute illness or concern Discharge Attestations Time Spent in Discharge Care*: greater than 30 min Specific Discharge Activities: Specific discharge activities: discussing with telehealth case manager/social workers/dc planners and documenting/other paperwork Quality Metrics Clinical Quality Measures During this hospital stay, did patient experience: None Coding Level of Care Code Acute Venetian Blind Maker for Chg Fwd Diagnoses Hyperglycemia without ketosis R73.9 Acute hypoactive delirium due to another medical condition F05 UTI (urinary tract infection) N39.0 Hyponatremia E87.1 Poorly controlled type 2 diabetes mellitus E11.65
== END 2020-06-21 12:20 | disposition home health service (06) | DRG 638 ==
LOC: ER 20:58 → MEDSURG 06-19 05:31
PROVIDERS: Physician Assistant; Admitting Provider Internal Medicine; Emergency Provider Emergency Medicine; PCP Nurse Practitioner; Visit Provider Family Medicine
DX: E11.65 Type 2 diabetes mellitus with hyperglycemia (principal); F05 Delirium due to known physiological condition; N39.0 Urinary tract infection, site not specified; E87.1 Hypo-osmolality and hyponatremia; N17.9 Acute kidney failure, unspecified; E11.22 Type 2 diabetes mellitus with diabetic chronic kidney disease; I12.9 Hypertensive chronic kidney disease with stage 1 through stage 4 chronic kidney disease, or unspecified chronic kidney disease; N18.9 Chronic kidney disease, unspecified; Z79.4 Long term (current) use of insulin; F41.9 Anxiety disorder, unspecified; E53.8 Deficiency of other specified B group vitamins; E03.9 Hypothyroidism, unspecified; Z66 Do not resuscitate
CPT/HCPCS: 12345; 36415; 36416; 71045; 80048; 80053; 81001; 82009; 82962; 83036; 83605; 83690; 84443; 84481; 84484; 85025; 86140; 87040; 87077; 87086; 87186; 93005; 96372; 96375; 97116; 97161; 97165; 97530; 99283; G0378; J0696; J1644; J1815 ×2; J7030; J7040

== ENCOUNTER 2020-07-31 15:10 | Emergency (ER) | payer MEDICARE, OTHER, SELFPAY ==
[2020-07-31 15:15] VITALS: BP 165/95; PULSE 112; RESP 18; TEMP 36.8; O2SAT 98; BMI 27.4
--- NOTE | 2020-07-31 17:09 | CTR_ITS ---
PROCEDURE INFORMATION: Exam: CT Abdomen And Pelvis Without Contrast Exam date and time: 07/31/2020 5:22 PM Age: 75 years old Clinical indication: Abdominal pain; Acute; Prior surgery; Surgery date: 6+ months; Surgery type: Hyst back; Additional info: Abd pain TECHNIQUE: Imaging protocol: Computed tomography of the abdomen and pelvis without contrast. Radiation optimization: All CT scans at this facility use at least one of these dose optimization techniques: automated exposure control; mA and/or kV adjustment per patient size (includes targeted exams where dose is matched to clinical indication); or iterative reconstruction. COMPARISON: No relevant prior studies available. RADIATION DOSE METRICS: Total DLP (mGy-cm): 312.94 FINDINGS: Tubes, catheters and devices: Stimulator device in the left flank region with lead in the posterior lumbar region. Lungs: Small scattered ground-glass opacities in both lung bases. Liver: Normal. No mass. Gallbladder and bile ducts: Cholecystectomy. The bile ducts are normal. Pancreas: Normal. No ductal dilation. Spleen: Normal. No splenomegaly. Adrenal glands: Normal. No mass. Kidneys and ureters: Normal. No hydronephrosis. Stomach and bowel: Moderate stool in the splenic flexure through sigmoid portions of the colon with stool in the rectum. The transverse colon is decompressed. Scattered radiopacities in the colon are most likely medication capsules. The stomach and small bowel are unremarkable. Appendix: The appendix is not visualized. Intraperitoneal space: Unremarkable. No free air. No significant fluid collection. Vasculature: Atherosclerotic calcifications. No aneurysm. Lymph nodes: Unremarkable. No enlarged lymph nodes. Urinary bladder: Unremarkable as visualized. Reproductive: 2.1 cm cyst in the left ovary. The uterus and right ovary are absent. Bones/joints: L3-L5 posterior mechanical in bony fusion with decompressive laminectomies. Soft tissues: Unremarkable. CT/CT abdomen pelvis wo con [id number] IMPRESSION: 1. No acute abnormality identified in the abdomen or pelvis. 2. Stool burden in the colon could indicate constipation in the right clinical setting. 3. Small ground-glass opacities in the lung bases could represent pulmonary edema or pneumonia. 4. 2.1 cm left ovarian cyst. Ultrasound follow-up for this postmenopausal patient is recommended. Radiation Dose CTDIVOL = (mGy): DLP = 312.94 (mGy-cm)
--- NOTE | 2020-07-31 17:15 | W.ED.NAVMDI ---
HPI - Nausea/Vomiting/Diarrhea General: Chief complaint: Nausea/Vomiting/Diarrhea Stated complaint: THROWING UP BLOOD Time Seen by Provider: 07/31/20 17:07 Source: patient Mode of arrival: ambulatory Limitations: no limitations History of Present Illness: HPI Narrative: 75-year-old female states she has had nausea and vomiting throughout the day. States had one episode of small amount of blood but states before that she had a bloody nose. She states her vomiting started after a bloody nose and she feels much improved at this time. She denies any blood in her stool. Denies any abdominal pain. Denies any worsening improving factors. Associated nausea: Yes Associated symtoms: Reports nausea; Denies chest pain, dysuria or headache(s) Review of Systems Const: Denies: fever(s), chills, body aches or change in appetite Eyes: Denies: blurry vision or eye discomfort ENMT: Denies: throat pain or dental pain Card: Denies: chest pain Resp: Denies: dyspnea GI: Reports: nausea and vomiting : Denies: dysuria Musc: Denies: neck pain or back pain Skin/Breast: Denies: rash Neuro: Denies: headache(s) Psych: Denies: depression Ari/Lymph: Denies: easy bruising All/Imm: Denies: urticaria PFSH ED PFSH: Medical History (Updated 07/31/20 @ 19:03 by Yemi Schaffer MD) Anxiety B12 deficiency CKD (chronic kidney disease) Diabetes HTN (hypertension) Senile dementia Surgical History S/P appendectomy S/P carpal tunnel release S/P cataract surgery S/P hysterectomy Family History Father Myocardial infarction Stroke Social History (Updated 06/19/20 @ 00:37 by Carmen Moralez MD) Smoking and tobacco status: never smoked Alcohol intake: never Household members: spouse Housing: House Marital status: Physical Exam Const: COMMON NORMALS: no acute distress, patient oriented x3 and healthy appearing HENMT: COMMON NORMALS: normocephalic and atraumatic HEAD & SCALP: normocephalic and atraumatic Eye: COMMON NORMALS: Equal, round and reactive pupils present and EOMs intact bilaterally PUPIL: Yes Equal, round and reactive pupils present Neck/C-Spine: COMMON NORMALS: full ROM and supple Chest: COMMONS NORMALS: normal inspection of the chest and normal palpation of entire chest wall Resp: COMMON NORMALS: normal respiratory effort, No retractions, No use of accessory muscles and clear to auscultation bilaterally AUSCULTATION: clear to auscultation bilaterally Cardio: COMMON NORMALS: regular rate, regular rhythm and No murmurs present (Cardio) RATE: regular rate RHYTHM: regular rhythm GI: COMMON NORMALS: Normal to inspection, nondistended, normoactive bowel sounds present, Soft to palpation, non-tender and no masses PALPATION: Yes Soft to palpation Extremity: COMMON NORMALS: normal to inspection and full ROM Neuro: COMMON NORMALS: patient oriented x3, moves all extremities and no focal motor deficits Psych: COMMON NORMALS: mental status grossly normal, Normal thought process present and cooperative THOUGHT PROCESS: Normal thought process present Skin: COMMON NORMALS: no rashes or lesions noted and no wounds GENERAL SKIN EXAM: no rashes or lesions noted Course Vital Signs: Vital signs: Vital Signs Temperature 98.3 F 07/31/20 15:15 Pulse Rate 98 07/31/20 19:43 Respiratory Rate 20 H 07/31/20 19:43 Blood Pressure 160/95 07/31/20 19:43 Pulse Oximetry 98 07/31/20 19:43 MDM - Nausea/Vomiting/Diarrhea MDM Narrative: Medical decision making narrative: Patient presents with vomiting likely from her nosebleed she has been asymptomatic here and is requesting discharge states she feels much improved. Patient hemoglobin here is normal. She has no signs of a GI bleed. She is to follow-up with PCP and return if she has any more vomiting. She understands agrees to plan. Patient prescribed Zofran for home. Lab Data: Labs: Lab Results 07/31/20 07/31/20 Range/Units 17:50 17:50 WBC 11.4 H (4.0-10.0) 10^3/ uL RBC 5.35 H (4.1-5.3) 10^6/u L Hgb 14.2 (11.5-15.3) g/dL Hct 45.4 (37.0-47.0) % MCV 84.9 (81-99) fL MCH 26.5 L (28.0-34.0) pg MCHC 31.3 (30.0-36.0) g/dL RDW 16.9 H (12.1-15.1) % Plt Count 392 (130-400) 10^3/c mm MPV 12.1 H (7.4-10.4) fL Neut % (Auto) 72.7 % Lymph % (Auto) 15.9 % [place] % (Auto) 9.6 % Eos % (Auto) 0.6 % Baso % (Auto) 0.6 % Neut # (Auto) 8.25 H (1.8-7.7) 10^3/u L Lymph # (Auto) 1.8 (0.8-4.8) 10^3/u L [place] # (Auto) 1.1 H (0.2-0.9) 10^3/u L Eos # (Auto) 0.1 (0.0-0.8) 10^3/u L Baso # (Auto) 0.1 (0.0-0.1) 10^3/u L Nucleated RBC % (a uto) 0 % Nucleated RBCs # 0.0 /100WBC Sodium 135 L (136-145) mmol/L Potassium 4.2 (3.5-5.1) mmol/L Chloride 96 L (98-107) mmol/L Carbon Dioxide 25 (22-29) mmol/L Anion Gap 18.2 (5-19) BUN 25 H (8-23) mg/dL Creatinine 1.4 H (0.5-0.9) mg/dL GFR Calculation Not Reportable Glucose 261 H (65-115) mg/dL Calculated Osmolal ity 293 (285-295) mOsm/k g Calcium 9.5 (8.5-10.5) mg/dL Total Bilirubin 0.5 (0.15-1.2) mg/dL AST 21 (0-32) U/L ALT 17 (0-33) U/L Alkaline Phosphata se 185 H (35-105) IU/L Total Protein 8.3 (6.6-8.7) g/dL Albumin 4.1 (3.5-5.2) g/dL Globulin 4.2 (1.3-4.6) g/dL Lipase 6 L (13-60) U/L Discharge Plan Discharge Patient Disposition: Home Clinical Impression: Vomiting Qualifiers: Vomiting type: unspecified Vomiting Intractability: non-intractable Nausea presence: with nausea Qualified Code(s): R11.2 - Nausea with vomiting, unspecified Condition: Stable Prescriptions: New ondansetron 4 mg tablet,disintegrating 4 mg PO Q6H PRN (Reason: nausea and vomiting) Qty: 14 RF: 0 No Action albuterol sulfate 90 mcg/actuation HFA aerosol inhaler 1 puff INHALATION Q4-5H PRN (Reason: Shortness Of Breath) RF: 0 allopurinol 100 mg tablet 100 mg PO DAILY RF: 0 amlodipine 5 mg tablet 5 mg PO DAILY RF: 0 aspirin 325 mg tablet 325 mg PO DAILY RF: 0 atorvastatin 20 mg tablet 20 mg PO DAILY RF: 0 calcium carbonate-vit D3-min 1 tab PO DAILY RF: 0 cyanocobalamin (vitamin B-12) 1,000 mcg/mL solution 1,000 mcg IM Q7D RF: 0 duloxetine 60 mg capsule,delayed release(DR/EC) 60 mg PO DAILY RF: 0 clonazepam [Klonopin] 0.5 mg tablet 0.5 mg PO DAILY PRN (Reason: Anxiety) RF: 0 Hold Instructions: Resume on 07/05/20. levothyroxine 75 mcg capsule 75 mcg PO DAILY RF: 0 lisinopril 40 mg tablet 40 mg PO DAILY RF: 0 magnesium oxide 1 tab PO DAILY RF: 0 metformin 1,000 mg tablet extended release 24hr 1,000 mg PO BID RF: 0 metoclopramide HCl 10 mg tablet 10 mg PO QID PRN (Reason: Stomach Upset) RF: 0 Levemir FlexTouch U-100 Insuln 100 unit/mL (3 mL) insulin pen 40 unit SUBCUT BID RF: 0 Trulicity 1.5 mg/0.5 mL pen injector 1.5 mg SUBCUT Q7D RF: 0 Discharge Orders: Discharge Order (Routine); Ordered 07/31/20 Ordered By: Yemi Schaffer Referrals: Patricia Hansen [employer] MACHINIST APPRENTICE [Primary Care Provider] - 1-3 days Discharge Diet: Advance as tolerated Discharge Activity: Resume usual activity Patient Instructions: Acute Nausea and Vomiting (ED) Discharge Date/Time: 07/31/20 19:35 Coding Level of Care Code ED Cut Off Saw Tender Metal for Chg Fwd Exam Comprehensive
--- NOTE | 2020-07-31 17:56 | XR_ITS ---
WS: [id number] XR chest 1V portable [id number] REASON FOR EXAM: cough FINDINGS: The chest is unchanged compared to previous examination of 06/18/2020. The heart and mediastinum are within normal limits. No active pulmonary parenchymal or pleural disease is noted. No significant abnormality the bony thorax. XR/XR chest 1V portable [id number] IMPRESSION: No acute chest abnormality.
[2020-07-31 18:01] LABS: Basophils # 0.1 10^3/uL (0.0-0.1); Basophils % 0.6 %; Eosinophils # 0.1 10^3/uL (0.0-0.8); Eosinophils % 0.6 %; Hematocrit 45.4 % (37.0-47.0); Hemoglobin 14.2 g/dL (11.5-15.3); Lymphocytes # 1.8 10^3/uL (0.8-4.8); Lymphocytes % 15.9 %; Mean Corpuscular HGB Conc 31.3 g/dL (30.0-36.0); Mean Corpuscular Hemoglobin 26.5 pg (28.0-34.0); Mean Corpuscular Volume 84.9 fL (81-99); Mean Platelet Volume 12.1 fL (7.4-10.4); Monocytes # 1.1 10^3/uL (0.2-0.9); Monocytes % 9.6 %; Neutrophils # 8.25 10^3/uL (1.8-7.7); Neutrophils % 72.7 %; Nucleated Red Blood Cells % 0 %; Platelet Count 392 10^3/cmm (130-400); Red Blood Count 5.35 10^6/uL (4.1-5.3); Red Cell Distribution Width 16.9 % (12.1-15.1); White Blood Count 11.4 10^3/uL (4.0-10.0)
[2020-07-31 18:24] LABS: Alanine Aminotransferase 17 U/L (0-33); Albumin Level 4.1 g/dL (3.5-5.2); Alkaline Phosphatase 185 IU/L (35-105); Anion Gap 18.2 (5-19); Aspartate Amino Transferase 21 U/L (0-32); Blood Urea Nitrogen 25 mg/dL (8-23); Calcium 9.5 mg/dL (8.5-10.5); Carbon Dioxide 25 mmol/L (22-29); Chloride 96 mmol/L (98-107); Creatinine Clr Calc Pharmacy 30.4277; Globulin 4.2 g/dL (1.3-4.6); Glucose 261 mg/dL (65-115); Lipase 6 U/L (13-60); Osmolality Calculated 293 mOsm/kg (285-295); Potassium 4.2 mmol/L (3.5-5.1); Sodium 135 mmol/L (136-145); Total Bilirubin 0.5 mg/dL (0.15-1.2); Total Protein 8.3 g/dL (6.6-8.7)
[2020-07-31] MEDS: ondansetron 2 mg/ML SDV 2 mL 4 MG IVP (19:02)
[2020-07-31 19:43] VITALS: BP 160/95; PULSE 98; RESP 20; O2SAT 98
== END 2020-07-31 19:35 | disposition home or self-care (01) ==
PROVIDERS: Emergency Provider Emergency Medicine; PCP Nurse Practitioner
DX: R11.2 Nausea with vomiting, unspecified (principal); Z79.82 Long term (current) use of aspirin; Z79.4 Long term (current) use of insulin; E11.9 Type 2 diabetes mellitus without complications; I10 Essential (primary) hypertension; F03.90 Unspecified dementia, unspecified severity, without behavioral disturbance, psychotic disturbance, mood disturbance, and anxiety
CPT/HCPCS: 12345; 71045; 74176; 80053; 83690; 85025; 96374; 96375; 99283; J2405